=== PATIENT | female | born 1990 | race American Indian/Alaskan Native ===

== ENCOUNTER 2019-10-27 03:12 | Emergency (ER) | payer SELFPAY ==
[2019-10-27 03:18] VITALS: BP 143/74
[2019-10-27] MEDS ORDERED: AMOXICILLIN/K CLAV 875/125MG TAB PO ONE (04:41)
[2019-10-27] MEDS ORDERED: ACETAMINOPHEN 500 MG TAB PO ONE (04:41)
[2019-10-27] MEDS ORDERED: IBUPROFEN 800 MG TAB PO ONE (04:42)
--- NOTE | 2019-10-27 05:42 | Emergency Department Report ---
ED General Adult HPI - General Chief complaint: Dental/Oral Stated complaint: TOOTHACHE Source: patient Mode of arrival: Ambulatory Limitations: No Limitations - History of Present Illness Initial comments: Patient is a 28-year-old -[place] female with no past medical history presents to the ED with painful swollen right mandible and premolar and molar toothache for the last 5 days, at which has worsened in the last 24 hours. Patient states that she has an appointment with a dentist in one week's time. Patient states that she has been taking [id number] pain medication with no relief. Patient denies dizziness, headache, chest pain, shortness of breath, fever, chills, nausea, vomiting, sore throat, nasal and sinus congestion or traumatic injury. MD Complaint: dental pain; gum swelling -: Sudden, days(s) (5) Location: mouth Radiation: non-radiation Severity scale (0 -10): 7 Quality: aching, sharp Consistency: constant Improves with: none Worsens with: eating Associated Symptoms: denies other symptoms, loss of appetite. denies: confusion, chest pain, cough, diaphoresis, fever/chills, headaches, malaise, nausea/vomiting, rash, seizure, shortness of breath, syncope, weakness, other Treatments Prior to Arrival: NSAID - Related Data Previous Rx's Medication Instructions Recorded Last Taken Type Clindamycin [Clindamycin CAP] 300 mg PO Q8HR #60 capsule 10/27/19 Unknown Rx Ketorolac [Toradol] 10 mg PO Q8H PRN #20 tablet 10/27/19 Unknown Rx predniSONE [Deltasone] 40 mg PO QDAY #10 tab 10/27/19 Unknown Rx traMADoL [Ultram] 50 mg PO Q6HR PRN #12 tablet 10/27/19 Unknown Rx Allergies Allergy/AdvReac Type Severity Reaction Status Date / Time No Known Allergies Allergy Unverified 10/27/19 04:06 ED Review of Systems ROS: Stated complaint: TOOTHACHE Other details as noted in HPI Constitutional: denies: chills, fever Eyes: denies: eye pain, eye discharge, vision change ENT: dental pain (severe pain on right mandibular premolar and molar teeth with extensive dental caries), other (right mandibular swelling on pain). denies: ear pain, throat pain Respiratory: denies: cough, shortness of breath, wheezing Cardiovascular: denies: chest pain, palpitations Endocrine: no symptoms reported Gastrointestinal: denies: abdominal pain, nausea, diarrhea Genitourinary: denies: urgency, dysuria, discharge Musculoskeletal: denies: back pain, joint swelling, arthralgia Skin: denies: rash, lesions Neurological: denies: headache, weakness, paresthesias Psychiatric: denies: anxiety, depression Hematological/Lymphatic: denies: easy bleeding, easy bruising ED Past Medical Hx - Past Medical History Previous Medical History?: No - Surgical History Past Surgical History?: Yes Hx Cholecystectomy: Yes Additional Surgical History: x 2 - Social History Smoking Status: Never Smoker - Medications Home Medications: Home Medications Medication Instructions Recorded Confirmed Last Taken Type Clindamycin [Clindamycin CAP] 300 mg PO Q8HR #60 capsule 10/27/19 Unknown Rx Ketorolac [Toradol] 10 mg PO Q8H PRN #20 tablet 10/27/19 Unknown Rx predniSONE [Deltasone] 40 mg PO QDAY #10 tab 10/27/19 Unknown Rx traMADoL [Ultram] 50 mg PO Q6HR PRN #12 tablet 10/27/19 Unknown Rx ED Physical Exam - General Limitations: No Limitations General appearance: alert, in no apparent distress - Head Head exam: Present: atraumatic, normocephalic - Eye Eye exam: Present: normal appearance, PERRL, EOMI Pupils: Present: normal accommodation - ENT ENT exam: Present: normal orophraynx, mucous membranes moist, TM's normal bilaterally, normal external ear exam, other (swollen, severely tender right mandibular gingiva with extensive dental caries; severely tender right mandibular premolar and molar teeth) - Neck Neck exam: Present: normal inspection, full ROM, lymphadenopathy - Respiratory Respiratory exam: Present: normal lung sounds bilaterally. Absent: respiratory distress, wheezes, rales, rhonchi, chest wall tenderness, accessory muscle use, decreased breath sounds - Cardiovascular Cardiovascular Exam: Present: regular rate, normal rhythm, normal heart sounds. Absent: systolic murmur, diastolic murmur, rubs, gallop - GI/Abdominal GI/Abdominal exam: Present: soft, normal bowel sounds. Absent: tenderness, guarding, hyperactive bowel sounds - Extremities Exam Extremities exam: Present: normal inspection, full ROM, normal capillary refill - Back Exam Back exam: Present: normal inspection, full ROM. Absent: tenderness, CVA tenderness (R), CVA tenderness (L), muscle spasm, paraspinal tenderness, vertebral tenderness - Neurological Exam Neurological exam: Present: alert, oriented X3, CN II-XII intact, normal gait, reflexes normal - Psychiatric Psychiatric exam: Present: normal affect, normal mood - Skin Skin exam: Present: warm, dry, intact, normal color. Absent: rash ED Course Vital Signs 10/27/19 03:16 Temperature 98.4 F Pulse Rate 76 Respiratory 18 Rate Blood Pressure 143/74 O2 Sat by Pulse 99 Oximetry ED Medical Decision Making - Medical Decision Making This is a 28-year-old -[place] female who presented to the ED with brielle nful swollen right mandible with premolar and molar toothache. In the ED, patient is alert and oriented 3 and is not in any distress but appears to be in significant pain. Patient was treated for pain in the ED and given initial oral antibiotics the ED. On reevaluation, patient's pain is well controlled with medications. Patient was discharged home on antibiotics and pain medications and advised to follow-up with her dentist or primary care physician as previously scheduled. Patient was is advised to return to the ED immediately if symptoms get worse. - Differential Diagnosis dental abscess; gingivitis; sinusitis; dental caries Critical care attestation.: If time is entered above; I have spent that time in minutes in the direct care of this critically ill patient, excluding procedure time. ED Disposition Clinical Impression: Dental abscess, Acute gingivitis, Dental caries Disposition: DC- TO HOME OR SELFCARE Is pt being admited?: No Does the pt Need Aspirin: No Condition: Stable Instructions: Dental Abscess (ED), Gingivitis (ED), Dental Caries (ED) Additional Instructions: Take medications with food, drink plenty of fluids and follow-up with your primary care physician or dentist as scheduled. Return to the ED immediately if symptoms get worse. Prescriptions: Clindamycin [Clindamycin CAP] 300 mg PO Q8HR #60 capsule predniSONE [Deltasone] 40 mg PO QDAY #10 tab Ketorolac [Toradol] 10 mg PO Q8H PRN #20 tablet PRN Reason: Pain traMADoL [Ultram] 50 mg PO Q6HR PRN #12 tablet PRN Reason: Pain Referrals: [facility] [Outside] - 3-5 Days Forms: Work/School Release Form(ED) Time of Disposition: 05:39 Print Language: URDU
== END 2019-10-27 05:50 | disposition home or self-care (01) ==
LOC: ED 03:12
DX: K04.7 Periapical abscess without sinus (principal); K02.9 Dental caries, unspecified; K05.00 Acute gingivitis, plaque induced; Z90.49 Acquired absence of other specified parts of digestive tract; Z79.899 Other long term (current) drug therapy

== ENCOUNTER 2019-11-02 23:37 | Emergency (ER) | payer SELFPAY ==
--- NOTE | 2019-11-03 02:30 | Emergency Department Report ---
Blank Doc - Documentation Documentation: I went to evaluate patient there was no one present in exam room, appears odette ent has eloped, I never evaluated patient.
== END 2019-11-03 02:00 | disposition left against medical advice (07) ==
LOC: ED 23:37
DX: R00.0 Tachycardia, unspecified (principal)
CPT/HCPCS: 93005; 93010

== ENCOUNTER 2020-03-02 23:56 | Emergency (ER) | payer SELFPAY ==
[2020-03-03 00:21] VITALS: BP 131/88
== END 2020-03-03 02:25 | disposition left against medical advice (07) ==
LOC: ED 23:56
DX: R06.00 Dyspnea, unspecified (principal); Z53.21 Procedure and treatment not carried out due to patient leaving prior to being seen by health care provider